=== PATIENT | male | born 1990 | race Two or more races ===

== ENCOUNTER 2024-11-15 09:09 | Emergency (ER) | payer SELFPAY ==
[2024-11-15] MEDS ORDERED: ONDANSETRON 4 MG/2 ML VIAL ONE ×2 (10:00→14:11)
[2024-11-15] MEDS ORDERED: FAMOTIDINE 20 MG/2 ML VIAL IV ONE (10:01)
[2024-11-15] MEDS ORDERED: MORPHINE 4 MG/ML SYR ONE ×2 (10:01→11:14)
[2024-11-15] MEDS ORDERED: NA CHLORIDE 0.9% 1,000 ML ONE ×2 (10:01→14:12)
[2024-11-15 10:12] LABS: Absolute Basophils 0.1 K/uL (0-0.5); Absolute Eosinophils 0.1 K/uL (0-0.5); Absolute Lymphocytes (CBC) 1.2 K/uL (0.7-4.9); Absolute Monocytes 0.5 K/uL (0.1-1.3); Basophils % 0.7 % (0-1.3); Eosinophils % 1.5 % (0-4.4); Hematocrit 48.1 % (39.6-49.0); Hemoglobin 16.7 g/dL (13.6-17.9); Lymphocytes % 11.9 % (15.3-44.8); MCH 28.2 pg (27.0-35.0); MCHC 34.6 g/dL (32.0-36.0); MCV 81.6 fL (80-100); MPV 9.1 fL (7.6-11.3); Monocytes % 5.3 % (3.3-12.3); Neutrophils % 80.6 % (41.7-73.7); Nucleated Red Blood Cells % 0.1 % (0-0); Platelets 225 thou/uL (152-406); Red Cell Distribution Width 13.2 % (12.1-15.2)
[2024-11-15 10:20] LABS: PT Prothrombin Time 12.4 SECONDS (9.4-12.5); Protime INR 1.18
[2024-11-15 10:25] LABS: ALT/SGPT 59 U/L (16-61); AST/SGOT 42 U/L (15-37); Albumin 3.6 g/dL (3.4-5.0); Albumin/Globulin Ratio 0.7 (1.1-1.8); Alkaline Phosphatase 91 U/L (45-117); Anion Gap 10.9 mEq/L (5.0-15.0); BUN Blood Urea Nitrogen 14 mg/dL (7-18); Bicarbonate 24 mEq/L (21-32); Bilirubin Total 0.4 mg/dL (0.2-1.0); Globulin 5.5 g/dL (2.3-3.5); Glomerular Filtration Rate 76 ml/min (=/>90); Glucose Level 261 mg/dL (74-106); Magnesium 2.2 mg/dL (1.6-2.4); NT PRO-BNP 66 pg/mL (<125); Potassium 3.9 mEq/L (3.5-5.1); Protein, Total 9.1 g/dL (6.4-8.2); Sodium Level 134 mEq/L (136-145); Troponin High Sensitivity 3.9 pg/mL (<58.9)
[2024-11-15 10:27] LABS: Bilirubin Direct < 0.2 mg/dL (0-0.2); Bilirubin Indirect, Calculated 0.2 mg/dL (0.2-0.8)
--- NOTE | 2024-11-15 11:06 | RAD REPORT ---
EXAM: Chest Abdomen Pelvis W Cont CLINICAL INDICATION: Chest and abdominal pain TECHNIQUE: CT chest, abdomen and pelvis was performed, with 100 cc Isovue-300 IV contrast, as per de partment protocol. Axial, sagittal and coronal reconstructions were obtained. One or more of the following dose reduction techniques were used: Automated exposure control, adjustment of the mA and/o r kV according to the patient size, and/or iterative reconstruction. Unless otherwise specified, incidental findings do not require dedicated imaging follow-up. [id number]. Oral contrast not given. This limits evaluation of the bowel. COMPARISON: None FINDINGS: The lungs are clear. No mediastinal or hilar lymphadenopathy. No pleural effusion.. No pericardial effusion Fatty liver. Liver is mildly enlarged. Spleen is mildly enlarged. The pancreas, adrenals and kidneys unremarkable. spleen, pancreas, adrenals, kidneys and bladder do not demonstrate an acute traumatic injury. There is no evidence of diverticulitis Normal appendix. Moderate bilateral hernias containing fat. Small umbilical hernia IMPRESSION: Fatty liver. Mild hepatosplenomegaly
--- NOTE | 2024-11-15 11:09 | RAD REPORT ---
EXAMINATION: CT HEAD WITHOUT CONTRAST CT CERVICAL SPINE WITHOUT CONTRAST CLINICAL INDICATION: Left arm pain and numbness. Neck pain TECHNIQUE: Axial CT images from the skull base to the vertex without intravenous contrast. Axial CT i mages through the cervical spine were obtained without intravenous contrast. Sagittal and coronal reformatted images were created from the data set. Coronal and sagittal reformatted images were creat ed from the data set. One or more of the following dose reduction techniques were used: Automated exposure control, adjustment of the mA and/or kV according to patient size, and/or iterative reconstr uction. Unless otherwise specified, incidental findings do not require dedicated imaging follow-up. [id number]. Comparison: none FINDINGS: An intracranial bleed is not seen. Ventricles are normal in caliber. No significant hypodensity within the brain No extra-axial fluid collection. No fluid within the sinuses/mastoids No fracture or dislocation is seen involving the cervical spine. Spondylosis upper cervical spine results in mild central spinal stenosis IMPRESSION: No acute intracranial abnormality noted A cervical fracture is not seen. Spondylosis upper cervical spine results in mild central spinal stenosis If the patient continues to have symptoms to suggest significant LUMP ROLLER/spinal pathology then MRI would be recommended
--- NOTE | 2024-11-15 11:10 | RAD REPORT ---
EXAM:Femur Left CLINICAL HISTORY: Left leg pain FINDINGS: No fracture seen No bony lesion noted Osteophytes involve the left hip.
--- NOTE | 2024-11-15 11:23 | RAD REPORT ---
Procedure: Chest Single View HISTORY: Cough COMPARISON: none FINDINGS: The lungs appear clear of acute infiltrate. No significant pleural effusion noted. The heart is normal size. IMPRESSION: No acute abnormality is displayed.
--- NOTE | 2024-11-15 11:29 | RAD REPORT ---
EXAMINATION: US bilateral LOWER EXTREMITY VENOUS DOPPLER CLINICAL INDICATION: Leg pain TECHNIQUE: Sonographic evaluation of the veins of the lower extremity bilaterally formed.Grayscale, c olor and spectral analysis performed on all vessels COMPARISON: No prior exam. FINDINGS: The common femoral, superficial femoral, greater saphenous, popliteal and posterior tibial veins bila terally are compressible and demonstrate augmentation. Doppler demonstrates good flow. IMPRESSION: No evidence of deep venous thrombosis involving either lower extremity
--- NOTE | 2024-11-15 12:48 | EDPHYS ---
Physician Documentation [facility] Name: Kishan Cruz Age: 34 yrs Sex: Male : 1990 Arrival Date: 11/15/2024 Time: 09:09 Bed 19 Private MD: HARSHAD Physician Gilbert Husain HPI: 11/15 10:20 This 34 yrs old Male presents to ER via Wheelchair with complaints of Leg paris Pain, Arm Pain. 10:20 The patient presents with decreased range of motion, pain, that is acute. The paris complaints affect the left hip, lateral aspect of left thigh and left upper thigh. Context: The problem was sustained at an unknown site, resulted from an unknown cause, the patient can partially bear weight, limps. Modifying factors: The symptoms are alleviated by remaining still, the symptoms are aggravated by movement. Associated signs and symptoms: The patient has no apparent associated signs or symptoms. Treatment prior to arrival includes: no previous treatment. The patient has not experienced similar symptoms in the past. Historical: - Allergies: 09:40 No Known Allergies; kc6 - Home Meds: 09:40 None [Active]; kc6 - PMHx: 09:40 None; kc6 - PSHx: 09:40 None; kc6 - Immunization history:: Adult Immunizations up to date. - Infectious Disease History:: Denies. - Social history:: Smoking status: Patient denies any tobacco usage or history of. ROS: 10:21 Constitutional: Negative for fever, chills, and weight loss, Eyes: Negative for injury, paris pain, redness, and discharge, ENT: Negative for injury, pain, and discharge, Neck: Negative for injury, pain, and swelling, Cardiovascular: Negative for chest pain, palpitations, and edema, Respiratory: Negative for shortness of breath, cough, wheezing, and pleuritic chest pain, Abdomen/GI: Negative for abdominal pain, nausea, vomiting, diarrhea, and constipation, Back: Negative for injury and pain, : Negative for injury, bleeding, discharge, and swelling, Skin: Negative for injury, rash, and discoloration, Neuro: Negative for headache, weakness, numbness, tingling, and seizure, Psych: Negative for depression, anxiety, suicide ideation, homicidal ideation, and hallucinations, Allergy/Immunology: Negative for hives, rash, and allergies, Endocrine: Negative for neck swelling, polydipsia, polyuria, polyphagia, and marked weight changes, Hematologic/Lymphatic: Negative for swollen nodes, abnormal bleeding, and unusual bruising, 10:21 MS/extremity: Positive for decreased range of motion, pain, tenderness, of the left arm and left leg, Exam: 10:21 Constitutional: This is a well developed, well nourished patient who is awake, alert, paris and in no acute distress. Head/Face: Normocephalic, atraumatic. Eyes: Pupils equal round and reactive to light, extra-ocular motions intact. Lids and lashes normal. Conjunctiva and sclera are non-icteric and not injected. Cornea within normal limits. Periorbital areas with no swelling, redness, or edema. ENT: Nares patent. No nasal discharge, no septal abnormalities noted. Tympanic membranes are normal and external auditory canals are clear. Oropharynx with no redness, swelling, or masses, exudates, or evidence of obstruction, uvula midline. Mucous membranes moist. Neck: Trachea midline, no thyromegaly or masses palpated, and no cervical lymphadenopathy. Supple, full range of motion without nuchal rigidity, or vertebral point tenderness. No Meningismus. Chest/axilla: Normal chest wall appearance and motion. Nontender with no deformity. No lesions are appreciated. Respiratory: Lungs have equal breath sounds bilaterally, clear to auscultation and percussion. No rales, rhonchi or wheezes noted. No increased work of breathing, no retractions or nasal flaring. Abdomen/GI: Soft, non-tender, with normal bowel sounds. No distension or tympany. No guarding or rebound. No evidence of tenderness throughout. Back: No spinal tenderness. No costovertebral tenderness. Full range of motion. Skin: Warm, dry with normal turgor. Normal color with no rashes, no lesions, and no evidence of cellulitis. Neuro: Awake and alert, GCS 15, oriented to person, place, time, and situation. Cranial nerves II-XII grossly intact. Motor strength 5/5 in all extremities. Sensory grossly intact. Cerebellar exam normal. Normal gait. Psych: Awake, alert, with orientation to person, place and time. Behavior, mood, and affect are within normal limits. 10:21 Cardiovascular: Rate: tachycardic, actual rate is 106 bpm, Rhythm: regular, Pulses: Pulses are 4+ in bilateral radial, brachial, femoral, popliteal, posterior tibial and and dorsalis pedis arteries.. Heart sounds: normal, normal S1and S2, no S3 or S4, no murmur, no rub, no gallop, Edema: is not appreciated, JVD: is not appreciated, 10:21 Musculoskeletal/extremity: DVT Exam: no swelling, no tenderness, negative Homans' sign noted on exam, no appreciated bluish discoloration, no erythema, no increased warmth, pain, 10:53 ECG was reviewed by the Attending Physician. [facility] Vital Signs: 09:38 BP 167 / 81; Pulse 106; Resp 18 S; Temp 98.9(O); Pulse Ox 100% on R/A; Weight 181.44 kg kc6 (M); Height 6 ft. 1 in. (R); Pain 10/10; 10:47 BP 139 / 61; Pulse 98; Resp 18 S; Pulse Ox 96% on R/A; kc6 09:38 Body Mass Index 52.77 (181.44 kg, 185.42 cm) [facility] 09:38 Pain Scale: Adult kc6 NIH Stroke Scale Scores: 10:21 NIHSS Score: 0 paris Bhargavi Coma Score: 10:21 Eye Response: spontaneous(4). Motor Response: obeys commands(6). Verbal Response: paris oriented(5). Total: 15. MDM: 09:13 Medical Screening Exam initiated paris 09:29 Medical Screening Exam initiated paris 10:25 Differential diagnosis: closed fracture, contusion, abrasion. Differential Diagnosis paris sepsis, flu. Data reviewed: vital signs, nurses notes, lab test result(s), EKG, radiologic studies, CT scan, doppler, plain films. Consideration of Admission/Observation Escalation of care including admission/observation considered. I considered the following discharge prescriptions or medication management in the emergency department Medications were administered in the Emergency Department. See MAR. Independent interpretation of the following test(s) in the Emergency Department EKG: See my EKG interpretation above. Test considered but Not performed: MRI: no mri . Historians other than the Patient: pt well informed. Care significantly affected by the following chronic conditions: Obesity. Counseling: I had a detailed discussion with the patient and/or guardian regarding the historical points, exam findings, and any diagnostic results supporting the discharge/admit diagnosis, lab results, radiology results. 11/15 09:48 Order name: Basic Metabolic Panel; Complete Time: 11:27 [facility] 11/15 09:48 Order name: CBC with Diff; Complete Time: 11:27 [facility] 11/15 09:48 Order name: LFT's; Complete Time: 11:27 [facility] 11/15 09:48 Order name: Magnesium; Complete Time: 11:27 [facility] 11/15 09:48 Order name: NT PRO-BNP; Complete Time: 11:27 [facility] 11/15 09:48 Order name: PT-INR; Complete Time: 11:27 [facility] 11/15 09:48 Order name: Troponin HS; Complete Time: 11:27 [facility] 11/15 09:48 Order name: XRAY Chest (1 view); Complete Time: 11:27 [facility] 11/15 09:48 Order name: Femur Left XRAY; Complete Time: 11:27 [facility] 11/15 09:48 Order name: US Extremity Venous W Compression Manny; Complete Time: 12:36 [facility] 11/15 09:56 Order name: Head C Spine Mpr Wo Con; Complete Time: 11:27 [facility] 11/15 09:56 Order name: Chest Abdomen Pelvis W Cont; Complete Time: 11:27 [facility] 11/15 09:48 Order name: Cardiac monitoring; Complete Time: :58 [facility] 11/15 09:48 Order name: EKG - Nurse/Tech; Complete Time: :58 [facility] 11/15 09:48 Order name: IV Saline Lock; Complete Time: 09:59 [facility] 11/15 09:48 Order name: Labs collected and sent; Complete Time: :59 [facility] 11/15 09:48 Order name: O2 Per Protocol; Complete Time: :58 [facility] 11/15 09:48 Order name: O2 Sat Monitoring; Complete Time: 09:58 [facility] EC:53 Rate is 100 beats/min. Rhythm is regular. QRS Collins is Normal. RI interval is normal. [facility] QRS interval is normal. QT interval is normal. No Q waves. T waves are Normal. No ST changes noted. Clinical impression: NSR w/ Non-specific ST/T Changes and No evidence of ischemia. Interpreted by me. Reviewed by me. Administered Medications: 10:11 Drug: NS 0.9% IV 1000 ml IV at 1000 ml once; to be given as a bolus over 60 minutes kc6 Route: IV; Rate: 1000 ml; Site: right antecubital; 10:11 Drug: morphine IVP or IV 4 mg IVP once over 4 mins Route: IVP; Infused Over: 4 mins; kc6 Site: right antecubital; 10:48 Follow up: Response: No adverse reaction; RASS: Alert and Calm (0) 6 10:11 Drug: Ondansetron IVP 4 mg IVP once; over 2 minutes Route: IVP; Site: right antecubital;kc6 10:48 Follow up: Response: No adverse reaction 6 10:11 Drug: Famotidine IVP 20 mg IVP once; dilute with 10 mL 0.9% NaCl; give over 2 minutes kc6 Route: IVP; Site: right antecubital; 10:48 Follow up: Response: No adverse reaction 6 11:24 Drug: morphine IVP or IV 4 mg IVP once over 4 mins Route: IVP; Infused Over: 4 mins; kc6 Site: right antecubital; 12:08 Follow up: Response: No adverse reaction kc6 Disposition Summary: 11/15/24 12:47 Discharge Ordered Notes: Location: Home paris Problem: new paris Symptoms: have improved paris Condition: Stable paris Diagnosis - Obesity, unspecified paris - Pain in left hip paris - Type 2 diabetes mellitus with hyperglycemia paris Followup: paris - With: Private Physician - When: 2 - 3 days - Reason: Recheck today's complaints, Continuance of care, Re-evaluation by your physician Followup: paris - With: Abhishek Deras DO - When: 2 - 3 days - Reason: Recheck today's complaints, Continuance of care, Re-evaluation by your physician Discharge Instructions: - Discharge Summary Sheet paris - Joint Pain paris - Arthritis paris - Type 2 Diabetes Mellitus, Diagnosis, Adult paris - Hyperglycemia paris - Musculoskeletal Pain paris - Obesity, Adult paris - Diabetes Mellitus and Nutrition, Adult paris - Hip Pain paris Forms: - Medication Reconciliation Form paris - Antibiotic Education paris - Prescription Opioid Use paris - Patient Portal Instructions paris - Leadership Thank You Letter paris Prescriptions: - Diclofenac Sodium 75 mg Oral Tablet Sustained Release - take 1 tablet ORAL route 2 times per day; 30 tablet; Refills: 0, Product paris Selection Permitted NIH Stroke Scale - NIH Stroke Score Date: 11/15/2024 Time: 10:21 Total Score = 0 10. Dysarthria (speech clarity - read or repeat words) - 0(Normal) 11. Extinction and Inattention (visual/tactile/auditory/spatial/personal) - 0(No abnormality) 1a. Level of Consciousness (LOC) - 0(Alert) 1b. Level of Consciousness (LOC) (Month \T\ Age) - 0(Both) 1c. LOC Commands (Open \T\ Closes Eyes/Regional Clinical Research Associate) - 0(Both) 2. Best Gaze (Lateral Gaze Paresis) - 0(Normal) 3. Visual Field Loss - 0(No visual loss) 4. Facial Palsy - 0(Normal) 5a. Left Arm: Motor (10-second hold) - 0(No drift) 5b. Right Arm: Motor (10-second hold) - 0(No drift) 6a. Left Leg: Motor (5-second hold - always test supine) - 0(No drift) 6b. Right Leg: Motor (5-second hold - always test supine) - 0(No drift) 7. Limb Ataxia (finger/nose \T\ heel/cowart - test with eyes open) - 0(Absent) 8. Sensory Loss (pinprick arms/legs/face) - 0(Normal) 9. Best Language: Aphasia (description/naming/reading) - 0(No aphasia) Initials: paris Signatures: Dispatcher [employer] EDGilbert Larsen MD MD cha Campbell, Kaitlyn RN RN kc6 Corrections: (The following items were deleted from the chart) 09:49 09:49 BASIC METABOLIC PANEL+C.LAB.BRZ ordered. EDMS EDMS 09:49 09:49 CBC+H.LAB.BRZ ordered. EDMS EDMS 09:49 09:49 HEPATIC FUNCTION+C.LAB.BRZ ordered. EDMS EDMS 09:49 09:49 MAGNESIUM+C.LAB.BRZ ordered. EDMS EDMS 09:49 09:49 PROBNP+C.LAB.BRZ ordered. EDMS EDMS 09:49 09:49 PROTIME (+INR)+COAG.LAB.BRZ ordered. EDMS EDMS 09:49 09:49 Troponin High Sensitivity+C.LAB.BRZ ordered. EDMS EDMS 09:49 09:49 Urinalysis+U.LAB.BRZ ordered. EDMS EDMS 09:49 09:49 Chest Single View+RAD.RAD.BRZ ordered. EDMS EDMS 09:49 09:49 Head C Spine CAP W Con+CT.RAD.BRZ ordered. EDMS EDMS :49 09:49 Hip Left 2 View+RAD.RAD.BRZ ordered. EDMS EDMS 09:49 09:49 Femur Left+RAD.RAD.BRZ ordered. EDMS EDMS 09:49 09:49 Extrem Venous W Compression Manny+US.RAD.BRZ ordered. EDMS EDMS 13:16 12:43 Misc. Order ordered. paris kc6
--- NOTE | 2024-11-15 12:48 | ER ---
Nurse's Notes [facility] Name: Kishan Cruz Age: 34 yrs Sex: Male : 1990 Arrival Date: 11/15/2024 Time: 09:09 Bed 19 Private MD: Diagnosis: Obesity, unspecified;Pain in left hip;Type 2 diabetes mellitus with hyperglycemia Presentation: 11/15 09:38 Chief complaint: Patient states: left leg pain x1mo and left arm pain x1 week. kc6 Coronavirus screen: At this time, the client does not indicate any symptoms associated with coronavirus-19. Ebola Screen: No symptoms or risks identified at this time. Initial Sepsis Screen: Does the patient meet any 2 criteria? HR > 90 bpm. Does the patient have a suspected source of infection? No. Patient's initial sepsis screen is negative. Risk Assessment: Do you want to hurt yourself or someone else? Patient reports no desire to harm self or others. Onset of symptoms was November 15, 2024. 09:38 Method Of Arrival: Wheelchair [facility] 09:38 Acuity: GABRIEL 2 kc6 Historical: - Allergies: 09:40 No Known Allergies; kc6 - Home Meds: 09:40 None [Active]; kc6 - PMHx: 09:40 None; kc6 - PSHx: 09:40 None; kc6 - Immunization history:: Adult Immunizations up to date. - Infectious Disease History:: Denies. - Social history:: Smoking status: Patient denies any tobacco usage or history of. Screenin:43 [facility] ED Fall Risk Assessment (Adult) History of falling in the last 3 months, kc6 including since admission Yes- physiologic fall (2 pts) Confusion or Disorientation No (0 pts) Intoxicated or Sedated No (0 pts) Impaired Gait No (0 pts) Mobility Assist Device Used No (0 pt) Altered Elimination No (0 pt) Score/Fall Risk Level 0 - 2 = Low Risk Oriented to surroundings, Maintained a safe environment, Educated pt \T\ family on fall prevention, incl call for assistance when getting out of bed. Abuse screen: Denies threats or abuse. Denies injuries from another. Nutritional screening: No deficits noted. Tuberculosis screening: No symptoms or risk factors identified. Assessment: 09:43 General: Appears in no apparent distress. uncomfortable, obese, unkempt, well kc6 developed, Behavior is calm, cooperative, appropriate for age. Pain: Complains of pain in left arm and lateral aspect of left thigh Pain does not radiate. Pain currently is 10 out of 10 on a pain scale. Quality of pain is described as aching, dull, Pain began suddenly, Is intermittent. Neuro: Level of Consciousness is awake, alert, obeys commands, Oriented to person, place, time, situation, Appropriate for age. Cardiovascular: Capillary refill < 3 seconds. Respiratory: Airway is patent Trachea midline Respiratory effort is even, unlabored, Respiratory pattern is regular, symmetrical. GI: Abdomen is round non-distended, obese, Bowel sounds present X 4 quads. Abd is soft and non tender X 4 quads. Reports constipation, Patient currently denies abdominal pain, diarrhea, nausea, vomiting. : Reports burning with urination. EENT: No signs and/or symptoms were reported regarding the EENT system. Derm: No signs and/or symptoms reported regarding the dermatologic system. Skin is intact, is healthy with good turgor, Skin is diaphoretic, Skin is normal, Skin temperature is warm. Musculoskeletal: Circulation, motion, and sensation intact. Range of motion: intact in all extremities. 10:47 Reassessment: Patient appears in no apparent distress at this time. No changes from kc6 previously documented assessment. Patient and/or family updated on plan of care and expected duration. Pain level reassessed. Patient is alert, oriented x 3, equal unlabored respirations, skin warm/dry/pink. 12:08 Reassessment: Patient appears in no apparent distress at this time. No changes from kc6 previously documented assessment. Patient and/or family updated on plan of care and expected duration. Pain level reassessed. Patient is alert, oriented x 3, equal unlabored respirations, skin warm/dry/pink. 13:16 Reassessment: Patient appears in no apparent distress at this time. No changes from kc6 previously documented assessment. Patient and/or family updated on plan of care and expected duration. Pain level reassessed. Patient is alert, oriented x 3, equal unlabored respirations, skin warm/dry/pink. Vital Signs: 09:38 BP 167 / 81; Pulse 106; Resp 18 S; Temp 98.9(O); Pulse Ox 100% on R/A; Weight 181.44 kg kc6 (M); Height 6 ft. 1 in. (R); Pain 10/10; 10:47 BP 139 / 61; Pulse 98; Resp 18 S; Pulse Ox 96% on R/A; kc6 09:38 Body Mass Index 52.77 (181.44 kg, 185.42 cm) kc6 09:38 Pain Scale: Adult kc6 Bhargavi Coma Score: 10:21 Eye Response: spontaneous(4). Motor Response: obeys commands(6). Verbal Response: paris oriented(5). Total: 15. NIH Stroke Scale Scores: 10:21 NIHSS Score: 0 paris ED Course: 09:13 Patient arrived in ED. im 09:13 Gilbert Husain MD is Attending Physician. paris 09:38 Caryn Shaw, RN is Primary Nurse. kc6 09:40 Triage completed. kc6 09:40 Arm band placed on. kc6 09:43 Patient has correct armband on for positive identification. Bed in low position. Call [facility] light in reach. Side rails up X2. Pulse ox on. NIBP on. Door closed. Noise minimized. Lights dimmed. Pillow given. 09:43 Patient maintains SpO2 saturation greater than 95% on room air. kc6 09:59 Basic Metabolic Panel Sent. bc6 09:59 CBC with Diff Sent. bc6 09:59 LFT's Sent. bc6 09:59 Magnesium Sent. bc6 09:59 PT-INR Sent. bc6 09:59 Troponin HS Sent. bc6 09:59 Initial lab(s) drawn, by nm, sent to lab. Inserted saline lock: 20 gauge in right [facility] antecubital area, using aseptic technique. Blood collected. Flushed with 10 mL NS. 10:45 Head C Spine Mpr Wo Con In Process Unspecified. EDMS 10:46 Chest Abdomen Pelvis W Cont In Process Unspecified. EDMS 10:52 XRAY Chest (1 view) In Process Unspecified. EDMS 10:52 Femur Left XRAY In Process Unspecified. EDMS 11:21 US Extremity Venous W Compression Manny In Process Unspecified. EDMS 12:46 Abhishek Deras DO is Referral Physician. paris 13:18 No provider procedures requiring assistance completed. IV discontinued, intact, kc6 bleeding controlled, No redness/swelling at site. Pressure dressing applied. Administered Medications: 10:11 Drug: NS 0.9% IV 1000 ml IV at 1000 ml once; to be given as a bolus over 60 minutes kc6 Route: IV; Rate: 1000 ml; Site: right antecubital; 10:11 Drug: morphine IVP or IV 4 mg IVP once over 4 mins Route: IVP; Infused Over: 4 mins; kc6 Site: right antecubital; 10:48 Follow up: Response: No adverse reaction; RASS: Alert and Calm (0) kc6 10:11 Drug: Ondansetron IVP 4 mg IVP once; over 2 minutes Route: IVP; Site: right antecubital;kc6 10:48 Follow up: Response: No adverse reaction kc6 10:11 Drug: Famotidine IVP 20 mg IVP once; dilute with 10 mL 0.9% NaCl; give over 2 minutes kc6 Route: IVP; Site: right antecubital; 10:48 Follow up: Response: No adverse reaction kc6 11:24 Drug: morphine IVP or IV 4 mg IVP once over 4 mins Route: IVP; Infused Over: 4 mins; kc6 Site: right antecubital; 12:08 Follow up: Response: No adverse reaction kc6 Medication: 13:18 VIS not applicable for this client. kc6 Outcome: 12:47 Discharge ordered by . paris 13:18 Discharged to home via wheelchair, with family, kc6 13:18 Condition: improved 13:18 Discharge instructions given to patient, Instructed on discharge instructions, follow up and referral plans. medication usage, Demonstrated understanding of instructions, follow-up care, medications, Prescriptions given X 1, 13:18 Patient left the ED. kc6 NIH Stroke Scale - NIH Stroke Score Date: 11/15/2024 Time: 10:21 Total Score = 0 10. Dysarthria (speech clarity - read or repeat words) - 0(Normal) 11. Extinction and Inattention (visual/tactile/auditory/spatial/personal) - 0(No abnormality) 1a. Level of Consciousness (LOC) - 0(Alert) 1b. Level of Consciousness (LOC) (Month \T\ Age) - 0(Both) 1c. LOC Commands (Open \T\ Closes Eyes/Roll Capper) - 0(Both) 2. Best Gaze (Lateral Gaze Paresis) - 0(Normal) 3. Visual Field Loss - 0(No visual loss) 4. Facial Palsy - 0(Normal) 5a. Left Arm: Motor (10-second hold) - 0(No drift) 5b. Right Arm: Motor (10-second hold) - 0(No drift) 6a. Left Leg: Motor (5-second hold - always test supine) - 0(No drift) 6b. Right Leg: Motor (5-second hold - always test supine) - 0(No drift) 7. Limb Ataxia (finger/nose \T\ heel/cowart - test with eyes open) - 0(Absent) 8. Sensory Loss (pinprick arms/legs/face) - 0(Normal) 9. Best Language: Aphasia (description/naming/reading) - 0(No aphasia) Initials: paris Signatures: Dispatcher [employer] Gilbert Lau MD MD cha Campbell, Kaitlyn, RN RN kc6 Maribel Burnette6 Janiya Grimes Corrections: (The following items were deleted from the chart) 09:43 09:38 Pulse 106bpm; Resp 18bpm; Spontaneous; Pulse Ox 100% RA; Temp 98.9F Oral; kc6 181.44 kg Measured; Height 6 ft. 1 in. Reported; BMI: 52.7; Pain 10, Adult; kc6
[2024-11-15 14:04] VITALS: TEMP 98.9
[2024-11-15 14:10] VITALS: BP 139/61; O2SAT 96
[2024-11-15] MEDS ORDERED: KETOROLAC 30 MG/ML INJ ONE (14:12)
== END 2024-11-15 13:18 | disposition home or self-care (01) ==
LOC: ER 09:09
DX: M25.552 Pain in left hip (principal); E11.65 Type 2 diabetes mellitus with hyperglycemia; E66.9 Obesity, unspecified
CPT/HCPCS: 36415; 70450; 71045; 71260; 72125; 74177; 80048; 80076; 83735; 83880; 84484; 85025; 85610; 93005; 93970; J2405; J7030; Q9967